=== PATIENT | male | born 1960 | race Caucasian/White ===

== ENCOUNTER → 2018-12-15 | Outpatient (CLI) | payer MEDICARE | END | disposition home or self-care (01) | LOC: PCVCCLINIC 14:04 | PROVIDERS: ATTEND Internal Medicine | DX: I25.10 Atherosclerotic heart disease of native coronary artery without angina pectoris (principal); E78.5 Hyperlipidemia, unspecified; J43.2 Centrilobular emphysema; G47.33 Obstructive sleep apnea (adult) (pediatric); F17.200 Nicotine dependence, unspecified, uncomplicated; I27.0 Primary pulmonary hypertension | CPT/HCPCS: 36415; 80061; 93005; G0463 ==

== ENCOUNTER → 2019-06-29 | Outpatient (CLI) | payer MEDICARE ==
--- NOTE | 2019-06-29 15:36 | PCVCIMAG ---
APPROVED REPORT Study performed: 06/29/2019 12:56:55 EXAM: Comprehensive 2D, Doppler, and color-flow Echocardiogram Patient Location: Echo lab Status: routine BSA: 2.44 HR: 84 bpmBP: 132/80 mmHg Rhythm: NSR Other Information Study Quality: Technically Difficult Risk Factors: Cardiac Risk Factors: HTN, Hyperlipidemia, Smoking Indications CAD Stent, Empysema, CLEOPATRA 2D Dimensions IVSd: 14.49 (7-11mm)LVOT Diam: 22.14 (18-24mm) LVDd: 35.03 mm PWd: 12.80 (7-11mm)Ascending Ao: 45.91 (22-36mm) LVDs: 25.36 (25-40mm) Left Atrium: 41.18 (27-40mm) Aortic Root: 39.31 mm LV Single Plane 4CH: 41.02 % Volumes Left Atrial Volume (Systole) Single Plane 4CH: 30.27 mLSingle Plane 2CH: 40.47 mL LA ESV Index: 14.00 mL/m2 Aortic Valve AoV Peak Pete.: 1.21 m/s AO Peak Gr.: 5.82 mmHgLVOT Max P.51 mmHg LVOT Max V: 1.28 m/s PRETTY Vmax: 4.07 cm2 Mitral Valve E/A Ratio: 0.5 MV Decel. Time: 237.22 ms MV E Max Pete.: 0.47 m/s MV A Pete.: 0.87 m/s TDI E/Lateral E': 5.88E/Medial E': 7.83 Medial E' Pete.: 0.06 m/s Lateral E' Pete.: 0.08 m/s Pulmonary Valve PV Peak Gr.: 2.64 mmHg Pulmonary Vein P Vein S: 0.51 m/sP Vein A: 0.46 m/s P Vein D: 0.31 m/sP Vein A Dur.: 93.4 msec P Vein S/D Ratio: 1.65 Left Ventricle The left ventricle is normal size. There is normal LV segmental wall motion. There is normal left ventricular wall thickness. Left ventricular systolic function is normal. The left ventricular ejection fraction is within the normal range. LVEF is 55-60%. Right Ventricle Right ventricle is mildly dilated. The right ventricular systolic function is normal. Atria The left atrium size is normal. Right atrium is dilated. Aortic Valve The aortic valve is normal in structure. No aortic regurgitation is present. There is no aortic valvular stenosis. Mitral Valve The mitral valve is normal in structure. There is no mitral valve regurgitation noted. No evidence of mitral valve stenosis. Tricuspid Valve The tricuspid valve is normal in structure. There is no tricuspid valve regurgitation noted. Pulmonic Valve The pulmonary valve is normal in structure. There is no pulmonic valvular regurgitation. Great Vessels The aortic root is normal in size. The ascending aorta is dilated measuring 4.6cm. IVC is normal in size and collapses >50% with inspiration. Pericardium There is no pericardial effusion. <Conclusion> The left ventricle is normal size. LVEF is 55-60%. Right ventricle is mildly dilated. The left atrium size is normal. Right atrium is dilated. The aortic valve is normal in structure. There is no mitral valve regurgitation noted. Right ventricle is mildly dilated. There is no tricuspid valve regurgitation noted. The aortic root is normal in size. There is no pericardial effusion. The ascending aorta is dilated measuring 4.6cm.
== END | disposition home or self-care (01) ==
LOC: PCVCIMAG 12:45
PROVIDERS: ATTEND Internal Medicine Cardiovascular Disease
DX: I25.10 Atherosclerotic heart disease of native coronary artery without angina pectoris (principal); J43.9 Emphysema, unspecified; G47.33 Obstructive sleep apnea (adult) (pediatric); J31.0 Chronic rhinitis; J96.11 Chronic respiratory failure with hypoxia; J96.12 Chronic respiratory failure with hypercapnia; J98.4 Other disorders of lung; I71.4 Abdominal aortic aneurysm, without rupture; I27.20 Pulmonary hypertension, unspecified; R63.4 Abnormal weight loss; F17.200 Nicotine dependence, unspecified, uncomplicated; E78.00 Pure hypercholesterolemia, unspecified; R09.89 Other specified symptoms and signs involving the circulatory and respiratory systems; R07.9 Chest pain, unspecified; R06.02 Shortness of breath; E03.9 Hypothyroidism, unspecified; Z88.8 Allergy status to other drugs, medicaments and biological substances; Z79.899 Other long term (current) drug therapy; Z79.82 Long term (current) use of aspirin
CPT/HCPCS: 36415; 80061; 93306; G0463

== ENCOUNTER → 2019-08-14 | Outpatient (CLI) | payer MEDICARE ==
[~2019-08-14] MED LIST: REGADENOSON 0.4 MG/5 ML DISP.SYRIN. IV ONE
--- NOTE | 2019-08-14 09:39 | PCVCIMAG ---
APPROVED REPORT Laterality: Bilateral Indications Bruit Doppler Spectral Velocity Analysis PSV / EDVPSV / EDV ECA (R) 95 / 18 cm/sECA (L) 102 / 17 cm/s dICA (R) 75 / 29 cm/sdICA (L) 62 / 21 cm/s [place] (R) 75 / 30 cm/smICA (L) 59 / 23 cm/s pICA (R) 60 / 19 cm/spICA (L) 53 / 19 cm/s Bulb (R) 61 / 20 cm/sBulb (L) 67 / 17 cm/s dCCA (R) 73 / 23 cm/sdCCA (L) 77 / 23 cm/s mCCA (R) 66 / 18 cm/smCCA (L) 75 / 19 cm/s Vert (R) 69 / 23 cm/sVert (L) 48 / 19 cm/s ICA/CCA 1.03 ICA/CCA 0.81 Findings The right carotid bulb has mild plaque. The right proximal internal carotid artery shows no significant stenosis. The right common carotid artery shows no significant stenosis. The right external carotid artery shows no significant stenosis. The left carotid bulb has mild plaque. The left proximal internal carotid artery shows no significant stenosis. The left common carotid artery shows no significant stenosis. The left external carotid artery shows no significant stenosis. Conclusion 1. Mild bilateral plaquing without significant stenosis. 2. Antegrade vertebral flow.
--- NOTE | 2019-08-14 16:45 | PCVCIMAG ---
APPROVED REPORT Imaging Protocol: Rest Tc-99m/Stress Tc-99m 1 day Study performed: 08/14/2019 09:29:54 Indication: Chest pain, Dyspnea, CAD Patient Location: Out-Patient Stress Nurse: Piper Riley RN, Emely Morfin RN [place] Tech:Anabel FerraraOSWALDO [email or web address] Ht: 6 ft 2 in Wt: 263 lbs BSA: 2.44 m2 HR: 53 bpm BP: 134/74 mmHg BMI: 33.7 Rhythm: Sinus Rhythm with Sinus Bradycardia, nonspecific ST abnormalities Medical History Medical History: Hyperlipidemia, CAD, COPD, CVD, Current Smoker Medications: Aspirin, Crestor Allergies: Tramadol Cardiac Risk Factors: Age Previous Cardiac Procedures: 2009 PCI - LAD Stents Pretest Chest Pain Characteristics: No chest pain Resting Data Rest SPECT myocardial perfusion imaging was performed in supine position 45 minutes following the intravenous injection of 10.4 mCi of Tc-99m Sestamibi. Time of rest injection: 0900 Date: 08/14/2019 Administration Route: IV Administration Site: Right Hand Pharmacologic Stress Pharmacologic stress test was performed by injecting Regadenoson 0.4 mg IV push over 10-15 seconds immediately followed by the intravenous injection of 34.3 mCi of Tc-99m Sestamibi. Time of stress injection: 1030 Date: 08/14/2019 Administration Route: IV Administration Site: Right Hand Gated Stress SPECT was performed 45 minutes after stress injection. The images were gated to evaluate regional wall motion and calculate left ventricular ejection fraction. Stress Test Details Stress Test: Pharmacologic stress testing performed using 0.4 mg of regadenoson per 5 mL given IV over 10 seconds. Reason for pharmacologic stress test: physical limitation, hip and back issues. HRMax Heart Rate (APMHR): 161 bpm Resting HR: 53 bpmTarget HR (85% APMHR): 136 bpm Max HR Achieved: 90 bpm % of APMHR: 55 Recovery HR: 81 bpm BP Resting BP: 134/74 mmHg Max BP: 128/62 mmHg Recovery BP: 116/74 mmHg ECG Resting ECG: Sinus Rhythm with Sinus Bradycardia, nonspecific ST abnormalities Stress ECG: Sinus Rhythm, nonspecific ST abnormalities Arrhythmia: None Recovery ECG: Sinus Rhythm, nonspecific ST abnormalities Clinical Reason for Termination: Completed protocol Stress Symptoms: Lightheaded Symptoms resolved with caffeine. Stress ECG Conclusion ECG: Non-ischemic Study Quality Study: Good Study Data Post stress, the left ventricular ejection was 69%.. SSS: 0 SRS: 2 SDS: 0 TID = 0.87. Perfusion No evidence of stress induced ischemia or prior myocardial infarction. Wall Motion Normal left ventricular size and function with no regional wall motion abnormalities. Nuclear Conclusion No evidence of stress induced ischemia or prior myocardial infarction. Normal left ventricular size and function with no regional wall motion abnormalities. Post stress, the left ventricular ejection was 69%. No prior study available for comparison. Interpreted by: Delroy Vásquez MD Electronically Approved: 08/14/2019 12:34:48 <Conclusion> ECG: Non-ischemic
== END | disposition home or self-care (01) ==
LOC: PCVCIMAG 08:13
PROVIDERS: ATTEND Internal Medicine Cardiovascular Disease
DX: I65.23 Occlusion and stenosis of bilateral carotid arteries (principal); I25.10 Atherosclerotic heart disease of native coronary artery without angina pectoris; J44.9 Chronic obstructive pulmonary disease, unspecified; E78.5 Hyperlipidemia, unspecified; I27.20 Pulmonary hypertension, unspecified; E03.9 Hypothyroidism, unspecified; Z72.0 Tobacco use; Z95.1 Presence of aortocoronary bypass graft; Z82.49 Family history of ischemic heart disease and other diseases of the circulatory system; Z82.3 Family history of stroke; Z88.6 Allergy status to analgesic agent
CPT/HCPCS: 78452; 93017; 93880; A9500; J2785